=== PATIENT | female | born 1995 | race Caucasian/White ===

== ENCOUNTER 2017-01-28 07:23 | Emergency (ER) | payer MEDICAID ==
[~2017-01-28] VITALS: Ht 162.6 cm; Wt 111.8 kg
[2017-01-28 07:25] VITALS: BP 126/81
== END 2017-01-28 08:06 | disposition home or self-care (01) ==
LOC: ED 07:55
DX: B37.3 Candidiasis of vulva and vagina (principal)
CPT/HCPCS: 99283

== ENCOUNTER 2017-04-06 19:15 | Outpatient (CLI) | payer MEDICAID, OTHER ==
[~2017-04-06] VITALS: Ht 162.6 cm; Wt 118.2 kg
[2017-04-06 19:32] VITALS: BP 130/68
[2017-04-06] MEDS ORDERED: PREN1TAB60 PO (19:58)
== END 2017-04-06 20:12 | disposition home or self-care (01) ==
LOC: LDOP 19:15
PROVIDERS: ATTEND Obstetrics & Gynecology
DX: O26.893 Other specified pregnancy related conditions, third trimester (principal); R10.9 Unspecified abdominal pain; Z3A.33 33 weeks gestation of pregnancy
CPT/HCPCS: 59025; 81003; 99211; G0463